=== PATIENT | male | born 1955 | race Caucasian/White ===

== ENCOUNTER → 2019-04-25 16:32 | Outpatient (CLI) | payer OTHER, SELFPAY ==
--- NOTE | 2019-04-25 | DI.MRI.S_ITS ---
PROCEDURE: MR CERVICAL SPINE WO CON INDICATIONS: Left sided neck and shoulder pain TECHNIQUE: The patient terminated the examination before was completed, secondary to pain. Only sagittal T2 images were acquired. COMPARISON: None. FINDINGS: Image quality: This examination is limited by involuntary motion artifact. There is reversal of the normal cervical lordosis, with the apex at the C4-C5 level. Moderate disc space narrowing can be seen the C4-C5, C5-C6, and C6-C7. Apparent bridging anterior osteophytes can be seen at C4-C5, C5-C6, and C6-C7. Hyfi-ld-roaoxshl central canal narrowing is seen at C4-C5, likely mild central canal narrowing at C6-C7. IMPRESSION: Lower cervical spine degenerative changes are seen. Reversal of the normal cervical lordosis is seen. This is commonly observed in patients with muscular spasm. Highly limited examination, which was terminated early by the patient, after only 1 imaging sequence was obtained. Dictated by: Grey Angulo M.D. on 04/25/2019 at 16:56 Approved by: Grey Angulo M.D. on 04/25/2019 at 16:58
== END ==
PROVIDERS: Visit Provider Internal Medicine
DX: M48.02 Spinal stenosis, cervical region (principal)
CPT/HCPCS: 72141

== ENCOUNTER 2024-07-15 21:55 | Emergency (ER) | payer OTHER, SELFPAY ==
[2024-07-15 22:04] VITALS: BP 164/89; PULSE 87; RESP 18; TEMP 36.6; O2SAT 98; BMI 31.7
[2024-07-15] MEDS: FLUORESCEIN 1 MG STRIP EYE-BOTH (22:11)
--- NOTE | 2024-07-15 22:17 | ED.EYEPROB ---
HPI - Eye Problem General Chief complaint: Eye Problems Stated complaint: foreign body in eye Time Seen by Provider: 07/15/24 21:56 Source: patient and family Mode of arrival: Ambulatory History of Present Illness HPI Narrative: 60-year-old male with no reported past medical history presents for left eye foreign body sensation. Patient states that he normally wears glasses, but when he goes hunting he wears contacts to help him shoot a gun better. He was taking out his contacts and he felt like the contact got stuck in his eye. He was attempting to remove the contact at home but was unsuccessful and due to pain and irritation came to the emergency department for evaluation. Related Data Previous Rx's Medication Instructions Recorded ofloxacin 0.3 % eye drops 2 drp EYE-LEFT QID 5 days #5 mL 07/15/24 Patient History Social History Smoking Status: Current every day smoker Smoking Status: Current every day smoker alcohol intake frequency: 0-2 drinks per day Substance Use Type: does not use Exam Initial Vital Signs Initial Vital Signs: Vital Signs Temperature 97.9 F 07/15/24 22:04 Pulse Rate 87 07/15/24 22:04 Respiratory Rate 18 07/15/24 22:04 Blood Pressure 164/89 H 07/15/24 22:04 Pulse Oximetry 98 07/15/24 22:04 Oxygen Delivery Method Room Air 07/15/24 22:04 Const: Awake, alert, uncomfortable, nontoxic appearing Eyes: PERRLA, EOMI, pain resolved with proparacaine administration. Fluorescein uptake over center cornea. Negative Zia sign. Eyelids everted, no foreign bodies found Skin: Warm, Dry, intact, no rashes Neuro: AO x3, CN II-XII grossly intact, moves all extremities Course Orders Ordered: Discontinued Medications Erythromycin (Erythromycin Ophth 1 Gm Oint) 1 applic EYE-LEFT NOW ONE Stop: 07/15/24 22:17 Last Admin: 07/15/24 22:20 Dose: 1 applic Fluorescein Sodium (Fluorescein 1 Mg Strip) 1 mg EYE-BOTH NOW ONE Stop: 07/15/24 21:58 Last Admin: 07/15/24 22:11 Dose: 1 mg Documented By: LS Vital Signs Vital signs: Vital Signs - 8 hr 07/15/24 22:04 Temperature 97.9 F Pulse Rate 87 Respiratory Rate 18 Blood Pressure 164/89 H Pulse Oximetry 98 Oxygen Delivery Method Room Air MDM - Eye Problem MDM Narrative Medical decision making narrative: Patient presenting for possible lost foreign body in his eye. Fluorescein was administered and there was a corneal abrasion seen in the central cornea. There is absolutely no foreign body found in any part of the eye, lower eyelid, or upper eyelid. Pain resolved with proparacaine. Although patient only wears contacts several times per year since he did wear contacts today plan to treat for Pseudomonas with ofloxacin drops. For tonight patient was instructed to administer erythromycin ointment and to supervisor opening and picking the ofloxacin prescription tomorrow. ED return precautions discussed. Discharge Plan Departure Patient Disposition: Home Clinical Impression: Corneal abrasion Instructions: DI for Corneal Abrasion Activity Restrictions/Additional Instructions: I was unable to see a contact stuck in your eye. You do have 2 small scratches in the center of your eye ball called corneal abrasions. Tonight, where the erythromycin ointment for comfort. During the daytime use the drops as prescribed. Follow up with an eye doctor to make sure that your eye is healing appropriately. Prescriptions: New ofloxacin 0.3 % drops 2 drp EYE-LEFT QID 5 Days Qty: 5 0RF Referrals: Sofi Coats MD [Physician] - Stand Alone Forms: Patient Portal/API/Survey
[2024-07-15] MEDS: ERYTHROMYCIN OPHTH 1 GM OINT 1 APPLIC EYE-LEFT (22:20)
== END 2024-07-15 22:23 | disposition home or self-care (01) ==
PROVIDERS: Emergency Provider Emergency Medicine
DX: S05.02XA Injury of conjunctiva and corneal abrasion without foreign body, left eye, initial encounter (principal)
CPT/HCPCS: 99282

== ENCOUNTER → 2024-09-25 10:42 | Outpatient (CLI) | payer MEDICARE, SELFPAY ==
--- NOTE | 2024-09-25 10:43 | DI.CT.S_ITS ---
PROCEDURE: CT LUNG LOW DOSE SCREENING INDICATIONS: Nicotine Dependence TECHNIQUE: Noncontrast 2.0-2.5 mm thick sections acquired from the pulmonary apices to the posterior costophrenic angles. 7 mm thick axial MIP, and 5 mm coronal and sagittal reformats were then acquired. For radiation dose reduction, the following was used: automated exposure control, adjustment of mA and/or kV according to patient size. COMPARISON: None. FINDINGS: Image quality: Diagnostic. Lower Neck: No enlarged lymph nodes. Thyroid: No thyroid nodules which require sonographic follow up, per consensus guidelines. Axillae: No enlarged lymph nodes. Chest Wall: Unremarkable. Bones: Unremarkable. Lungs and Pleura: No pneumothorax or pleural effusions. 4 millimeter juxtapleural nodule in the right middle lobe with smooth margins. Heart: Heart size is normal. No pericardial effusion. Three-vessel coronary calcifications. Thoracic Vessels: The aorta and pulmonary arteries demonstrate normal size. Mediastinum and Sabrina: No enlarged lymph nodes. Esophagus: No wall thickening. No hiatal hernia. Upper Abdomen: 1.3 centimeter segment 2 liver lesion with indeterminate attenuation. IMPRESSION: No suspicious pulmonary nodules. LUNG-RADS 2; continued annual screening, if eligible. Clinically Significant Non-pulmonary Findings: 1. 1.3 centimeter segment 2 liver lesion with indeterminate attenuation. Consider evaluation with MRI with contrast (hepatic mass protocol). 2. Marked coronary artery calcifications for age. Correlate with risk factors and advise counseling. Dictated by: Ernie Bridges M.D. on 09/25/2024 at 14:44 Approved by: Ernie Bridges M.D. on 09/25/2024 at 14:47
== END ==
LOC: CT 10:43
PROVIDERS: PCP Family Medicine; Referring Provider Family Medicine; Visit Provider Family Medicine
DX: F17.210 Nicotine dependence, cigarettes, uncomplicated (principal); Z12.2 Encounter for screening for malignant neoplasm of respiratory organs; I25.10 Atherosclerotic heart disease of native coronary artery without angina pectoris; K76.9 Liver disease, unspecified; R91.1 Solitary pulmonary nodule
CPT/HCPCS: 71271

== ENCOUNTER → 2024-10-06 07:59 | Outpatient (CLI) | payer MEDICARE, SELFPAY ==
[2024-10-06 08:26] LABS: Add Manual Diff / Slide Review NO; Basophils Absolute Auto 0 /uL (0-100); Basophils Percent Auto 0.7 % (0-2); Eosinophils Absolute Auto 200 /uL (0-450); Eosinophils Percent Auto 2.7 % (2-4); Hematocrit 47.5 % (41-53); Hemoglobin 15.8 g/dL (13.5-17.5); Lymphocytes Absolute Auto 1400 /uL (1100-4500); Lymphocytes Percent Auto 23.1 % (25-40); Mean Corpuscular HGB Conc 33.2 % (30-36); Mean Corpuscular Hemoglobin 28.1 PG (26-34); Mean Corpuscular Volume 84.6 fL (80-100); Monocytes Absolute Auto 800 /uL (0-900); Monocytes Percent Auto 13.1 % (3-14); Neutrophils Absolute Auto 3600 /uL (1500-7000); Neutrophils Percent Auto 60.4 % (50-75); Platelet Count 260 X10^3/uL (150-400); Red Blood Cell Count 5.61 X10^6/uL (4.5-5.9); Red Cell Distribution Width 13.2 % (11.6-14.8)
[2024-10-06 08:51] LABS: Alanine Aminotransferase 23 IU/L (<50); Albumin 4.8 g/dL (3.5-5.0); Albumin Globulin Ratio 1.7 (1.0-2.8); Alkaline Phosphatase 69 U/L (38-126); Aspartate Aminotransferase 24 IU/L (17-59); BUN Creatinine Ratio 15.1 (6-22); Bilirubin Total 0.9 mg/dL (0.2-1.3); Blood Urea Nitrogen 13 mg/dL (9-20); Calcium 9.6 mg/dL (8.4-10.2); Carbon Dioxide 26 mmol/L (22-32); Chloride 102 mmol/L (98-107); Cholesterol 192 mg/dL (140-199); Estimated Glomerular Filt Rate > 60 mL/min (>60); Globulin 2.8 g/dL (1.7-4.1); Glucose 102 mg/dL (80-110); HDL Cholesterol 40 mg/dL (40-60); HEMOLYSIS < 15 (0-50); LDL Cholesterol Calculated 134 mg/dL (<100); Potassium 4.4 mmol/L (3.4-5.1); Sodium 136 mmol/L (137-145); Total Protein 7.6 g/dL (6.3-8.2); Triglycerides 88 mg/dL (35-150)
[2024-10-06 09:21] LABS: Prostate Specific Antigen 1.74 ng/mL (0.10-4.00)
[2024-10-06 10:42] LABS: Creatinine Urine Random 94.95 mg/dL
[2024-10-06 10:46] LABS: Microalbumin Urine Random 1.2 mg/dL (0-1.6)
[2024-10-09 09:07] LABS: Fecal Immunochemical Test Positive (Negative)
== END ==
PROVIDERS: PCP Family Medicine; Referring Provider Family Medicine; Visit Provider Family Medicine
DX: R03.0 Elevated blood-pressure reading, without diagnosis of hypertension (principal); E66.9 Obesity, unspecified; Z12.11 Encounter for screening for malignant neoplasm of colon; F17.200 Nicotine dependence, unspecified, uncomplicated; Z13.9 Encounter for screening, unspecified; Z13.228 Encounter for screening for other metabolic disorders; Z13.220 Encounter for screening for lipoid disorders; Z12.5 Encounter for screening for malignant neoplasm of prostate
CPT/HCPCS: 36415; 80053; 80061; 82043; 82274; 82570; 84153; 85025